=== PATIENT | female | born 1955 | race Caucasian/White ===

== ENCOUNTER 2016-11-11 06:54 | Day surgery (SDC) | payer OTHER ==
[2016-11-10 13:28] VITALS: BMI 28.7
--- OUTSIDE RECORDS SUMMARY | 2016-11-11 07:00 | XMS | Clinical Summary ---
:1955 Author Organization [facility] Address [address] [place] [address] Phone Care Team Providers Name Role Phone , Primary Care Provider Unavailable Allergies Not on File Current Medications Not on file Active Problems Not on file Social History Tobacco Use Types Packs/Day Years Used Date Never Assessed Sex Assigned at Date Recorded Not on file Last Filed Vital Signs Not on file Plan of Treatment Not on file Results Not on filefrom Last 3 Months
--- OUTSIDE RECORDS SUMMARY | 2016-11-11 07:00 | XMS | Clinical Summary ---
:1955 Author Organization [facility] Address [address] [place] [address] Phone Care Team Providers Name Role Phone [...]
[2016-11-11] MEDS ORDERED: Diprivan 20 ML ONE (08:00)
[2016-11-11 08:01] LABS: #Basophils 0.1 thou/uL (0.0-0.2); #Eosinphils 0.2 thou/uL (0.0-0.7); #Lymphocytes 2.9 thou/uL (1.20-3.40); #Monocytes 0.9 thou/uL (0.11-0.59); #Neutrophils 4.5 thou/uL (1.40-6.50); %Basophils 0.7 % (0.0-1.0); %Eosinophils 2.3 % (0.0-10.0); %Lymphocytes 33.8 % (21.0-51.0); %Monocytes 10.4 % (0.0-10.0); Hematocrit 42.5 % (36.0-47.0); Mean Platelet Volume 9.9 fL (7.4-10.4); Red Blood Cell (RBC) Count 4.59 mill/uL (4.20-5.40); White Blood Cell (WBC) Count 8.5 thou/uL (4.8-10.8)
[2016-11-11] MEDS ORDERED: Bupivacaine HCl 0.5%/Epinephrine 1:200,000/PF 30 ml Vial ONE (08:18)
[2016-11-11 08:20] LABS: Anion Gap 15 mmol/L (10-20); BUN (Urea Nitrogen) 19 mg/dL (9.8-20.1); Calc. Creatinine Clearance 108 mL/min (70-130); Calcium 9.3 mg/dL (7.8-10.44); Carbon Dioxide 25 mmol/L (23-31); Chloride 103 mmol/L (98-107); Estimated GFR-MDRD 87
[2016-11-11] MEDS ORDERED: Fentanyl 100 MCG/2 ML VIAL ONE ×2 (08:22→09:54)
--- NOTE | 2016-11-11 09:41 | OP ---
DATE OF PROCEDURE: 11/11/2016 PROCEDURES: Left knee arthroscopic partial medial meniscectomy and removal of large loose body. SURGEON: Zechariah Maldonado M.D. ANESTHESIA: General. BLOOD LOSS: Minimal. DRAINS: None. COMPLICATIONS: None. FINDINGS AT SURGERY: Grade 2-3 chondromalacia patellofemoral joint, intact lateral compartment, int act ACL, large loose body and medial meniscus tear with grade 3 chondromalacia medial femoral condyl e, placed the camera through the lateral portal and probe and shaver through the medial portal and d ebrided the medial meniscus to debride the articular cartilage flap tears of the medial femoral cond yle. The meniscus found to be stable. There was a large loose body which was under the medial meni scus. This was removed from the medial meniscus and extracted in 1 piece, shaved the bed of the loo se body and the femur where the damage had occurred from walking on this loose body. Knee was irrig ated and drained. Sterile dressings applied.
== END 2016-11-11 12:15 | disposition home or self-care (01) ==
LOC: SDC 06:54
PROVIDERS: ATTEND Orthopaedic Surgery
PROC: 0SBD4ZZ Excision of Left Knee Joint, Percutaneous Endoscopic Approach (ICD-10-PCS; principal; 2016-11-11)
DX: M22.42 Chondromalacia patellae, left knee (principal); I10 Essential (primary) hypertension; F32.9 Major depressive disorder, single episode, unspecified; F41.9 Anxiety disorder, unspecified; K21.9 Gastro-esophageal reflux disease without esophagitis; J45.909 Unspecified asthma, uncomplicated; E03.9 Hypothyroidism, unspecified; F17.210 Nicotine dependence, cigarettes, uncomplicated; Z88.5 Allergy status to narcotic agent; Z79.899 Other long term (current) drug therapy; M19.91 Primary osteoarthritis, unspecified site; Z90.710 Acquired absence of both cervix and uterus; Z98.890 Other specified postprocedural states
CPT/HCPCS: 36415; 80048; 85025; 93005; 93010; 96374; G8978-GP-CL; G8979-GP-CL; G8980-GP-CL; J0670; J2704; J3010

== ENCOUNTER 2017-01-12 17:07 | Outpatient (CLI) | payer OTHER | END 2017-01-12 17:08 | disposition home or self-care (01) | LOC: LABBT 17:07 | PROVIDERS: ATTEND Orthopaedic Surgery | DX: Z47.1 Aftercare following joint replacement surgery (principal); M75.101 Unspecified rotator cuff tear or rupture of right shoulder, not specified as traumatic ==

== ENCOUNTER 2017-01-19 06:13 | Day surgery (SDC) | payer OTHER ==
[2017-01-12 17:19] VITALS: BMI 28.2
[2017-01-19] MEDS ORDERED: Fentanyl 100 MCG/2 ML VIAL ONE (07:32)
[2017-01-19] MEDS ORDERED: Midazolam HCl 2 mg/2 ml Vial ONE (07:32)
[2017-01-19] MEDS ORDERED: Bupivacaine/Epinephrine 0.25% 30 ML VIAL ONE (08:21)
[2017-01-19] MEDS ORDERED: CEFAZOLIN/Water 2 GM/20 ML SYRINGE ONE (08:50)
--- NOTE | 2017-01-19 15:40 | OP ---
PREOPERATIVE DIAGNOSES: Impingement syndrome and frozen shoulder. POSTOPERATIVE DIAGNOSES: Impingement syndrome and frozen shoulder. PROCEDURES PERFORMED: Manipulation under anesthesia, arthroscopic major synovectomy, major debrideme nt, and acromioplasty with decompression. SURGEON: Zechariah Maldonado M.D. ANESTHESIA: General. BLOOD LOSS: Minimal. DRAINS: None. COMPLICATIONS: None. DESCRIPTION OF PROCEDURE: The patient was taken to the operating room where general anesthesia was i nduced. I manipulated her arm and I was able to obtain flexion of about 150, external rotation of 60 , internal rotation was not significantly improved, this is usually the case. Arm was placed in trac tion, and prepped and draped in the usual sterile fashion. Scope was placed in the glenohumeral join t, which was full of blood for manipulation. I debrided the synovium. I debrided the ligamentous ca psular structures circumferentially around the labrum to free up the glenohumeral joint. I was able to drive the scope through between the humeral head and the glenoid after this previously it was very tight. Synovectomy was performed, so the of joint was completely decompressed. Scope was liza nilda in subacromial bursa. I performed an anterior and inferior acromioplasty and complete bursectomy . The CA ligament was taken down. I probed the rotator cuff confirmed that it was not torn all the way through. There was probably some partial thickness tearing, but nothing that required surgical r epair. Shoulder was then drained. Portals closed with nylon suture. Sterile dressings applied. Th ere were no complications.
[2017-01-19] MEDS ORDERED: Bupivacaine HCl 0.5%/Epinephrine 1:200,000/PF 30 ml Vial ONE (16:20)
[2017-01-19] MEDS ORDERED: Glycopyrrolate 0.2 MG/ML 5 ML SYRINGE ONE (16:25)
[2017-01-19] MEDS ORDERED: Lidocaine 1% PF 5 ML VIAL ONE (16:25)
[2017-01-19] MEDS ORDERED: Ketorolac Tromethamine 30 MG/ML VIAL ONE (16:25)
[2017-01-19] MEDS ORDERED: Ondansetron HCl/PF 4 MG/2 ML Vial ONE (16:25)
[2017-01-19] MEDS ORDERED: Dexamethasone 20 MG/5 ML VIAL ONE (16:25)
[2017-01-19] MEDS ORDERED: Propofol 200 MG/20 ML VIAL ONE (16:25)
== END 2017-01-19 13:45 | disposition home or self-care (01) ==
LOC: SDC 06:13
PROVIDERS: ATTEND Orthopaedic Surgery
PROC: 0RBK4ZZ Excision of Left Shoulder Joint, Percutaneous Endoscopic Approach (ICD-10-PCS; principal; 2017-01-19)
DX: M75.42 Impingement syndrome of left shoulder (principal); M75.02 Adhesive capsulitis of left shoulder; M75.112 Incomplete rotator cuff tear or rupture of left shoulder, not specified as traumatic; I10 Essential (primary) hypertension; E89.0 Postprocedural hypothyroidism; K21.9 Gastro-esophageal reflux disease without esophagitis; M19.90 Unspecified osteoarthritis, unspecified site; Z90.710 Acquired absence of both cervix and uterus; Z90.49 Acquired absence of other specified parts of digestive tract; Z88.5 Allergy status to narcotic agent; Z98.890 Other specified postprocedural states; Z79.891 Long term (current) use of opiate analgesic; Z79.899 Other long term (current) drug therapy
CPT/HCPCS: G8984-GP-CK; G8985-GP-CK; G8986-GP-CK; J0670; J1100; J1885; J2001; J2250; J2405; J2704; J3010

== ENCOUNTER 2017-04-12 07:44 | Day surgery (SDC) | payer OTHER ==
[2017-04-11 15:34] VITALS: BMI 26.6
--- NOTE | 2017-04-12 06:12 | HP ---
HISTORY: Ms. Alvarado is a well-established patient of Dr. Mondragon. She returns today for evaluation o f 8-12 months of severe lower back pain and bilateral hip and buttock pain. She has an MRI on disk p rovided that reveals moderate lateral recess stenosis at L4-L5 which could potentially match her symp toms. She is adamant that she does not want to pursue any other conservative treatment at this time and hopes to find a surgical solution. PAST MEDICAL HISTORY: Significant for hypothyroidism, history of nerve damage in the left upper extr emity, gastroesophageal reflux disease, osteoarthritis. CURRENT MEDICATIONS: Aspirin, Dexilant, levothyroxine and Lyrica. ALLERGIES: MORPHINE and FENTANYL. PAST SURGICAL HISTORY: Left shoulder arthroplasty, left knee arthroscopy, dorsal column stimulator p lacement and removal, nerve decompression left, and lumbar decompression. PHYSICAL EXAMINATION: NEUROLOGIC: Alert and oriented x3. Gait is antalgic severely. Lower extremity motor exam is normal . ASSESSMENT: Lumbar radiculopathy. PLAN: Dr. Mondragon met with the patient, reviewed imaging and advocated for L4-L5 decompression. He ex plained to the patient the risks, benefits, alternatives of the procedure. The patient expressed und erstanding and would like to move surgery as discussed. I do believe the patient is mentally compete nt and capable of making medical decisions for herself, and we will proceed with surgery as planned.
[2017-04-12] MEDS ORDERED: CEFAZOLIN/Water 2 GM/20 ML SYRINGE ONE ×2 (07:59→13:41)
[2017-04-12] MEDS ORDERED: Thrombin 5000 UNITS/5 ML VIAL ONE (08:29)
[2017-04-12] MEDS ORDERED: Bupivacaine HCl 0.5%/Epinephrine 1:200,000/PF 30 ml Vial ONE (08:29)
[2017-04-12] MEDS ORDERED: Midazolam HCl 2 mg/2 ml Vial ONE (08:42)
[2017-04-12] MEDS ORDERED: Fentanyl 100 MCG/2 ML VIAL ONE (08:43)
[2017-04-12] MEDS ORDERED: HYDROmorphone 0.5 MG/0.5 ML SYRINGE ONE ×3 (08:54→12:10)
[2017-04-12] MEDS ORDERED: Ketamine 50 MG/ML VIAL ONE (09:05)
--- NOTE | 2017-04-12 11:29 | OP ---
DATE OF PROCEDURE: 04/12/2017 SURGEON: Gregg Mondragon M.D. ACQUISITION ADVISOR: Sal Horne PA-C INDICATION: Pain. DIAGNOSIS: Lumbar stenosis. PROCEDURE: L4-5 lumbar decompression. ANESTHESIA: General. TECHNIQUE: The patient was brought into the operating room and placed under general anesthesia. She was flipped from a supine or prone position on the operating room table. A linear incision was plan tash over the L4-L5 segment. After prepping and draping and after an appropriate operative pause, the incision was created. Soft tissues were swept away from midline. A self-retaining retractor was pl aced in the wound for optimal exposure. After confirming the appropriate levels of C-arm fluoroscopy , an Adson rongeur was used to remove the spinous process along the inferior aspect of L4 and the sup erior aspect of L5. High-speed cutting drill bit as well as 2, 3 and 4-mm Kerrisons were then used t o perform a laminectomy which extended to encompass the medial aspects of the facet joints at that [place]. The wound was irrigated. Hemostasis was maintained throughout. The wound was then closed in a natomic layers and a pressure dressing was applied. There were no known procedural complications.
[2017-04-12] MEDS ORDERED: Lidocaine 1% PF 5 ML VIAL ONE (16:12)
[2017-04-12] MEDS ORDERED: Atropine Sulfate 0.4 mg/1 ml Vial ONE (16:12)
[2017-04-12] MEDS ORDERED: Dexamethasone 20 MG/5 ML VIAL ONE (16:12)
[2017-04-12] MEDS ORDERED: Ondansetron HCl/PF 4 MG/2 ML Vial ONE (16:12)
[2017-04-12] MEDS ORDERED: Glycopyrrolate 0.2 MG/ML 5 ML SYRINGE ONE (16:12)
[2017-04-12] MEDS ORDERED: PHENYLEPHRINE-NS 100 MCG/ML 10 ML SYRINGE ONE (16:12)
[2017-04-12] MEDS ORDERED: PROPOFOL 200 MG/20 ML VIAL ONE (16:12)
== END 2017-04-12 14:40 | disposition home or self-care (01) ==
LOC: SDC 07:44
PROVIDERS: ATTEND Neurological Surgery
PROC: 01NB0ZZ Release Lumbar Nerve, Open Approach (ICD-10-PCS; principal; 2017-04-12)
DX: M48.061 Spinal stenosis, lumbar region without neurogenic claudication (principal); M54.16 Radiculopathy, lumbar region; E03.9 Hypothyroidism, unspecified; I10 Essential (primary) hypertension; K21.9 Gastro-esophageal reflux disease without esophagitis; F17.210 Nicotine dependence, cigarettes, uncomplicated; M19.90 Unspecified osteoarthritis, unspecified site; Z79.82 Long term (current) use of aspirin; Z79.891 Long term (current) use of opiate analgesic; Z79.899 Other long term (current) drug therapy; Z88.5 Allergy status to narcotic agent; Z98.890 Other specified postprocedural states
CPT/HCPCS: 76001; 96374; J0461; J0670; J1100; J1170; J2001; J2250; J2405; J2704; J3010

== ENCOUNTER 2017-06-19 16:07 | Emergency (ER) | payer OTHER ==
[2017-06-19] MEDS ORDERED: Ketorolac Tromethamine 60 MG/2 ML VIAL ONE (18:32)
[2017-06-19] MEDS ORDERED: Cyclobenzaprine 10 MG TAB ONE (18:32)
--- NOTE | 2017-06-19 19:09 | CT ---
CT LUMBAR SPINE PERFORMED WITHOUT CONTRAST ENHANCEMENT: HISTORY: Worsening low back pain since a fall four days ago. History of previous spinal surgery. FINDINGS: The vertebral bodies maintain normal height, and disk spaces are all fairly well preserved. There ar e degenerative facet changes present. There are no signs of any compression fracture. The visualize d portions of the kidneys appear unremarkable. No significant periaortic adenopathy. L1-L2: Unremarkable. L2-L3: Unremarkable. L3-L4: Disk bulge with facet changes cause some borderline canal narrowing. L4-L5: Postoperative changes are seen at this level with laminectomy change. Marked degenerative fa cet changes associated with a minimal spondylolisthesis of 2 to 3 mm. Increased density in the lyndsey en region could be related to scar. L5-S1: Disk bulge is seen. Severe facet hypertrophic changes are seen. No significant canal stenos is. IMPRESSION: 1. No acute findings. 2. Postoperative changes of the spine. POS: [facility]
--- NOTE | 2017-06-19 20:06 | CT ---
CT BRAIN PERFORMED WITHOUT CONTRAST ENHANCEMENT: HISTORY: The patient fell several days ago. Head injury. FINDINGS: There is some age appropriate ventricular and sulcal prominence. No signs of intracerebral hemorrhag e or extraaxial fluid collections. Tiny prominence along the dura, seen on axial image #22, more pos teriorly, could potentially represent a tiny meningioma. The mastoid air cells and visualized sinuse s show minimal mucosal change within the ethmoid air cells. IMPRESSION: No acute intracranial abnormalities. POS: [facility]
--- NOTE | 2017-06-19 20:08 | CT ---
CT CERVICAL SPINE PERFORMED WITHOUT CONTRAST ENHANCEMENT: HISTORY: Fall with neck pain. FINDINGS: The vertebral bodies are normal in height. There is an anterior cervical fusion at C5-C6. There are disk implants at the C6-C7 level. A dorsal column stimulator device is also present at this level. This degrades detail. There are degenerative facet changes present. At the C4-C5 level, there is b ilateral foraminal narrowing. There also appears to be some mild bilateral foraminal narrowing at C6 -C7. There is no CT evidence for fracture. IMPRESSION: Postoperative changes of the spine. No CT evidence for acute injury. POS: [facility]
== END 2017-06-19 22:06 | disposition home or self-care (01) ==
LOC: ERS 16:07
DX: S09.90XA Unspecified injury of head, initial encounter (principal); M54.5 Low back pain; F41.9 Anxiety disorder, unspecified; F32.9 Major depressive disorder, single episode, unspecified; F17.210 Nicotine dependence, cigarettes, uncomplicated; Z79.899 Other long term (current) drug therapy; W18.30XA Fall on same level, unspecified, initial encounter
CPT/HCPCS: 70450; 72125; 72131; 96372; J1885

== ENCOUNTER 2017-09-01 13:28 | Outpatient (CLI) | payer OTHER ==
--- NOTE | 2017-09-01 15:16 | MRI ---
MRI LEFT SHOULDER WITHOUT CONTRAST: HISTORY: M75.102, tear of left rotator cuff. COMPARISON: None. FINDINGS: This is exam is severely degraded due to motion artifact throughout all sequences. BICEPS TENDON: There is moderate extraarticular biceps tenosynovitis. There is a large spur of the lesser tuberosit y at the level of the intertrabecular groove causing some interstitial split tearing of the biceps te ndon. Moderate tendonosis of intraarticular biceps tendon. LABRUM: There is maceration of the entire circumferential labrum. ROTATOR CUFF: Evaluation of the rotator cuff is severely limited. There appears some high-grade undersurface parti al tearing of the entire supraspinatus tendon. No full-thickness perforation incidentally appreciate d. There is deep prior undersurface fraying of the subscapularis. BONES: There are large subchondral cysts of the glenoid with central articular surface complete cartilage lo ss. There is also large osteophyte formation of both the glenoid and the humeral head. SOFT TISSUES: Large subacromial subdeltoid bursa effusion. MUSCLES: There appears to be a normal muscle bulk. IMPRESSION: 1. Circumferential degenerative labral tearing with advanced osteoarthrosis. There is circumferenti al maceration of the labrum, large osteophyte formation, and extensive moderate size focal complete c artilage loss. 2. Large joint effusion with synovitis. 3. Large subacromial subdeltoid bursal effusion. 4. There appears to be some 50-60% undersurface partial tearing of nearly the entire supraspinatus t endon to the footplate with interstitial delamination. A full-thickness perforation is not appreciat ed, although severely limited due to the motion artifact. POS: [facility]
== END 2017-09-01 13:29 | disposition home or self-care (01) ==
LOC: TBSIIMAG 13:28
PROVIDERS: ATTEND Orthopaedic Surgery
DX: M75.102 Unspecified rotator cuff tear or rupture of left shoulder, not specified as traumatic (principal); M19.012 Primary osteoarthritis, left shoulder; M75.112 Incomplete rotator cuff tear or rupture of left shoulder, not specified as traumatic; M25.712 Osteophyte, left shoulder; M25.412 Effusion, left shoulder; M24.812 Other specific joint derangements of left shoulder, not elsewhere classified

== ENCOUNTER 2017-09-15 08:30 | Inpatient (IN) | payer OTHER ==
[2017-09-18 12:55] VITALS: BMI 26.6
[2017-09-21] MEDS ORDERED: CEFAZOLIN/Water 2 GM/20 ML SYRINGE ONE (06:35)
[2017-09-21] MEDS ORDERED: Sodium Chloride 0.9% 100 ML ONE (06:35)
[2017-09-21] MEDS ORDERED: HYDROcodone/Acetaminophen 10/325 mg Tablet PO PRN ×2 (06:45)
[2017-09-21] MEDS ORDERED: Bisacodyl 10 MG SUPP PR PRN (06:45)
[2017-09-21] MEDS ORDERED: diphenhydrAMINE 50 MG CAP PO PRN (06:45)
[2017-09-21] MEDS ORDERED: Ondansetron ODT 4 MG TAB PO PRN (06:45)
[2017-09-21] MEDS ORDERED: Zolpidem Tartrate 5 MG TAB PO PRN ×2 (06:45→07:34)
[2017-09-21] MEDS ORDERED: Methocarbamol 1 GM/10 ML VIAL SLOW IVP PRN (06:45)
[2017-09-21] MEDS ORDERED: Acetaminophen 325 MG TAB PO PRN (06:45)
[2017-09-21] MEDS ORDERED: Fentanyl 100 MCG/2 ML VIAL ONE (07:07)
[2017-09-21] MEDS ORDERED: Midazolam HCl 2 mg/2 ml Vial ONE (07:07)
[2017-09-21] MEDS ORDERED: Morphine 4 MG/ML VIAL ONE (07:10)
[2017-09-21] MEDS ORDERED: Ketorolac Tromethamine 30 MG/ML VIAL IVP PRN (07:34)
[2017-09-21] MEDS ORDERED: HYDROcodone/Acetaminophen 5/325 mg Tablet PO PRN (07:34)
[2017-09-21] MEDS ORDERED: traMADol HCl 50 MG TAB PO PRN ×2 (07:34)
[2017-09-21] MEDS ORDERED: Promethazine HCl 25 MG/ML VIAL IM PRN ×2 (07:34→09:51)
[2017-09-21] MEDS ORDERED: Ondansetron HCl/PF 4 MG/2 ML Vial IVP PRN ×2 (07:34→09:51)
[2017-09-21] MEDS ORDERED: Ropivacaine 0.2% 550 ML 550 ML NERVE BLCK SCH (07:34)
[2017-09-21] MEDS ORDERED: Promethazine HCl 25 MG/ML VIAL SLOW IVP PRN (09:51)
--- NOTE | 2017-09-21 10:38 | OP ---
DATE OF PROCEDURE: 09/21/2017 PREOPERATIVE DIAGNOSIS: Degenerative joint disease, left shoulder with biceps tendinitis. POSTOPERATIVE DIAGNOSIS: Degenerative joint disease, left shoulder with biceps tendinitis. PROCEDURE: Total shoulder arthroplasty with biceps tenotomy. SURGEON: Zechariah Maldonado M.D. SUPERVISOR HAND WORKERS: Mel Powell PA-C BLOOD LOSS: Minimal. SPECIMEN: None. DRAINS: None. COMPLICATIONS: None. DESCRIPTION OF PROCEDURE: The patient is taken to the operating room where general anesthesia was in duced. She was placed in a beach chair position, received vancomycin and Ancef preoperatively. Left arm was prepped from the neck to the fingertips. A standard deltopectoral approach was made. Subsc apularis was taken down with a dinesh of bone. I dislocated the shoulder and cut the humeral head. T he humerus was prepared for a stem size 4B x28 and head 46 x 17. After this, the humerus was prepare d. I exposed the glenoid circumferentially. I drilled a central hole and used a pegged small 35 gle noid. This was cemented into place. The biceps tendon was in poor condition, rather than tenodese i t. I decided to go ahead and do a tenotomy. It was not that mobile. The shoulder was reduced after trialing with good range of motion was obtained, good stability. Trials were removed. Permanent im plants were impacted into place with cemented glenoid and cemented humerus. Subscapularis was repair ed with a double row repair. Deltopectoral was closed with 0 Vicryl, subcu closed with 2-0 Vicryl, a nd the skin was closed with rafy.
[2017-09-21] MEDS: Sodium Chloride 0.9% 1,000 ML IV SCH ×2 (13:17→20:23)
[2017-09-21] MEDS: Pregabalin 50 MG CAP PO SCH ×3 (13:17→20:23)
[2017-09-21] MEDS: Mexiletine HCl 150 MG CAP PO SCH ×3 (13:17→20:23)
[2017-09-21] MEDS: Furosemide 20 MG TAB PO SCH (13:17)
[2017-09-21] MEDS: Famotidine 20 MG TAB PO SCH ×2 (13:17→20:23)
[2017-09-21] MEDS: Venlafaxine HCl XR 75 MG CAP PO SCH (13:17)
[2017-09-21] MEDS: Venlafaxine HCl XR 150 MG CAP PO SCH (13:17)
[2017-09-21] MEDS ORDERED: Ropivacaine 0.2% HCl/PF (40 MG/20 ML VIAL) ONE (13:58)
[2017-09-21] MEDS ORDERED: Ropivacaine 0.5% HCl/PF (150 MG/30 ML VIAL) ONE (13:58)
[2017-09-21] MEDS ORDERED: PHENYLEPHRINE-NS 100 MCG/ML 10 ML SYRINGE ONE (14:25)
[2017-09-21] MEDS ORDERED: Ondansetron HCl/PF 4 MG/2 ML Vial ONE (14:25)
[2017-09-21] MEDS ORDERED: PROPOFOL 200 MG/20 ML VIAL ONE (14:25)
[2017-09-21] MEDS ORDERED: Glycopyrrolate 0.2 MG/ML 5 ML SYRINGE ONE (14:25)
[2017-09-21] MEDS ORDERED: Dexamethasone 20 MG/5 ML VIAL ONE (14:25)
[2017-09-21] MEDS ORDERED: Ketorolac Tromethamine 30 MG/ML VIAL ONE (14:25)
[2017-09-21] MEDS ORDERED: ePHEDrine/0.9% NaCl/PF SYRINGE 50 mg/10 ml ONE (14:25)
[2017-09-21] MEDS: CEFAZOLIN/Water 2 GM/20 ML SYRINGE SLOW IVP SCH ×2 (16:18→20:24)
[2017-09-21] MEDS ORDERED: Vancomycin HCl 1.5 GM in Sodium Chloride 0.9% 250 ML 300 ML IVPB SCH (18:00)
[2017-09-21] MEDS: MORPHINE SULFATE 100 MG PO SCH ×2 (21:34→21:35)
[2017-09-21] MEDS: OLOPATADINE HCL EA EYE SCH (21:35)
[2017-09-22] MEDS: HYDROcodone/Acetaminophen 5/325 mg Tablet PO PRN ×2 (01:17→06:03)
[2017-09-22] MEDS ORDERED: Levothyroxine 175 MCG TAB PO SCH (06:00)
[2017-09-22] MEDS ORDERED: Ketotifen Fumarate 0.025% Ophth Soln 5 ml Bottle EA EYE SCH (09:00)
[2017-09-22] MEDS ORDERED: HYDROcodone/Acetaminophen 10/325 mg Tablet PO PRN ×2 (09:54)
[2017-09-22] MEDS: Mexiletine HCl 150 MG CAP PO SCH (10:12)
[2017-09-22] MEDS: Venlafaxine HCl XR 75 MG CAP PO SCH (10:12)
[2017-09-22] MEDS: Venlafaxine HCl XR 150 MG CAP PO SCH (10:12)
[2017-09-22] MEDS: Famotidine 20 MG TAB PO SCH (10:12)
[2017-09-22] MEDS: Pregabalin 50 MG CAP PO SCH (10:13)
[2017-09-22] MEDS: Furosemide 20 MG TAB PO SCH (10:13)
[2017-09-22 12:48] VITALS: BP 172/84; TEMP 97.5
== END 2017-09-22 14:19 | disposition home or self-care (01) | DRG 483 ==
LOC: SURG A 09-21 05:43 → SJJU 09-21 13:02
PROVIDERS: ADMIT Orthopaedic Surgery; ATTEND Orthopaedic Surgery
PROC: 0RRK0JZ Replacement of Left Shoulder Joint with Synthetic Substitute, Open Approach (ICD-10-PCS; principal; 2017-09-21)
PROC: 0LN20ZZ Release Left Shoulder Tendon, Open Approach (ICD-10-PCS; 2017-09-21)
DX: M19.012 Primary osteoarthritis, left shoulder (principal); M75.102 Unspecified rotator cuff tear or rupture of left shoulder, not specified as traumatic; M75.22 Bicipital tendinitis, left shoulder; I10 Essential (primary) hypertension
CPT/HCPCS: 36416; A4306; C1713; G8987-GO-CK; G8988-GO-CJ; J1100; J1885; J2250; J2270; J2405; J2704; J2795; J3010; J3370; J7050

== ENCOUNTER 2017-09-18 12:28 | Outpatient (CLI) | payer OTHER ==
[2017-09-18 13:28] LABS: #Basophils 0.1 thou/uL (0.0-0.2); #Eosinphils 0.2 thou/uL (0.0-0.7); #Lymphocytes 2.3 thou/uL (1.20-3.40); #Monocytes 0.7 thou/uL (0.11-0.59); #Neutrophils 3.2 thou/uL (1.40-6.50); %Eosinophils 2.5 % (0.0-10.0); %Lymphocytes 35.3 % (21.0-51.0); %Monocytes 11.2 % (0.0-10.0); Hemoglobin 13.9 g/dL (12.0-16.0); Mean Corpuscular HGB CONC 33.6 g/dL (32.0-36.0); Mean Corpuscular Hemoglobin 30.1 pg (27.0-31.0); Mean Corpuscular Volume 89.3 fL (78.0-98.0); Platelet Count 165 thou/uL (130-400); RBC Distribution Width 13.2 % (11.5-14.5); Red Blood Cell (RBC) Count 4.63 mill/uL (4.20-5.40); White Blood Cell (WBC) Count 6.4 thou/uL (4.8-10.8)
[2017-09-18 13:59] LABS: Anion Gap 14 mmol/L (10-20); BUN (Urea Nitrogen) 14 mg/dL (9.8-20.1); Calc. Creatinine Clearance 0 mL/min (70-130); Calcium 9.1 mg/dL (7.8-10.44); Carbon Dioxide 24 mmol/L (23-31); Chloride 104 mmol/L (98-107); Estimated GFR-MDRD 80; Glucose 142 mg/dL (80-115); Potassium 3.7 mmol/L (3.5-5.1); Sodium 138 mmol/L (136-145)
--- NOTE | 2017-09-18 15:18 | RAD ---
PA AND LATERAL VIEWS OF THE CHEST: History: Pre-operative evaluation. FINDINGS: The heart size is normal. The lungs are expanded without lobar consolidation, pneumothoraces, or pleu ral effusions. There are mild degenerative changes of the spine. There are post op changes in the low er cervical spine. IMPRESSION: No radiographic evidence of acute cardiopulmonary process. POS: [facility]
== END 2017-09-18 12:29 | disposition home or self-care (01) ==
LOC: LABBT 12:28
PROVIDERS: ATTEND Orthopaedic Surgery
DX: Z01.818 Encounter for other preprocedural examination (principal); M75.102 Unspecified rotator cuff tear or rupture of left shoulder, not specified as traumatic; M19.012 Primary osteoarthritis, left shoulder
CPT/HCPCS: 71046; 80048; 85025; 87081; 93005; 93010

== ENCOUNTER 2017-11-12 15:07 | Emergency (ER) | payer OTHER ==
[2017-11-12] MEDS ORDERED: Ketorolac Tromethamine 30 MG/ML VIAL ONE (15:57)
[2017-11-12] MEDS ORDERED: Diazepam 5 MG TAB ONE (15:58)
--- NOTE | 2017-11-12 16:54 | CT ---
CT CERVICAL SPINE NONCONTRAST: DATE: 11-12-17 HISTORY: [id number] with cervicalgia. FINDINGS: Vertebral body heights are maintained. Anterior metallic plate and screws at C5 and C6. Dorsal column spinal cord stimulator lead electrodes from C4-5 level to C7 level. There is ankylosis of the C5 and C6 vertebral bodies. There is non-ankylosis of C6 and C7, although there are interbody graft materia l that has settled into the endplates at C6-7. There is multilevel severe degenerative facet disease, especially in the upper levels, bilaterally. No severe bony central spinal canal stenosis at any lev el. Multiple levels of neuroforaminal stenosis. IMPRESSION: 1. Status post anterior cervical discectomy and fusion at mid and lower cervical spine. 2. Dorsal column spinal cord stimulator. 3. Multilevel bilateral severe facet osteoarthrosis. [place] POS: [facility]
== END 2017-11-12 18:15 | disposition home or self-care (01) ==
LOC: ERS 15:07
DX: S16.1XXA Strain of muscle, fascia and tendon at neck level, initial encounter (principal); Z71.6 Tobacco abuse counseling; F41.9 Anxiety disorder, unspecified; F32.9 Major depressive disorder, single episode, unspecified; F17.210 Nicotine dependence, cigarettes, uncomplicated; Z79.899 Other long term (current) drug therapy; X58.XXXA Exposure to other specified factors, initial encounter
CPT/HCPCS: 72125; 96372; 99406; J1885

== ENCOUNTER 2019-06-24 05:54 | Outpatient (CLI) | payer MEDICARE, OTHER ==
[2019-06-24 13:29] LABS: Anion Gap 15 mmol/L (10-20); BUN (Urea Nitrogen) 15 mg/dL (9.8-20.1); Calc. Creatinine Clearance 0 mL/min (70-130); Carbon Dioxide 24 mmol/L (23-31); Chloride 105 mmol/L (98-107); Estimated GFR-MDRD 79; Glucose 110 mg/dL (80-115); Potassium 3.7 mmol/L (3.5-5.1); Sodium 140 mmol/L (136-145)
[2019-06-24 18:14] LABS: SARS-CoV-2 MS2 Positive; SARS-CoV-2 N Gene Negative; SARS-CoV-2 S Gene Negative; SARS-CoV-2 orf1ab Negative
== END 2019-06-24 05:55 | disposition home or self-care (01) ==
LOC: LABBT 05:54
PROVIDERS: ATTEND Neurological Surgery
DX: Z01.812 Encounter for preprocedural laboratory examination (principal); Z11.59 Encounter for screening for other viral diseases; M43.16 Spondylolisthesis, lumbar region; M54.16 Radiculopathy, lumbar region
CPT/HCPCS: 80048; U0003; 87635

== ENCOUNTER 2019-06-26 07:24 | Day surgery (SDC) | payer MEDICARE, OTHER ==
[2019-06-24 10:55] VITALS: BMI 25.0
--- NOTE | 2019-06-25 12:44 | HP ---
HISTORY OF PRESENT ILLNESS: Ms. Alvraado is a 63-year-old woman known to us for prior evaluation and decompression at L4-5 for lumbar spinal stenosis some two years ago. She returns now with ever increasing lower back pain and components of L4 radiculopathies bilaterally with new MRI performed in [place] that reveals new anterolisthesis of L4 upon L5, which likely represents instability with foraminal stenosis. She hopes to move forward with treating this surgically as her pains are severe and she does not respond well with pain management procedures, although she has attempted them. PAST MEDICAL HISTORY: Significant for hypothyroidism, history of nerve damage to the left upper extremity, gastroesophageal reflux disease, and osteoarthritis. CURRENT MEDICATIONS: 1. Aspirin. 2. Dexilant. 3. Levothyroxine. 4. Lyrica. ALLERGIES: TO MORPHINE AND FENTANYL. PAST SURGICAL HISTORY: Left shoulder arthroplasty, left knee arthroscopy, DCS placement and removal, nerve decompression on the left, lumbar decompression x2. PHYSICAL EXAMINATION: On exam, she is alert and oriented x3. Gait is severely antalgic. Lower extremity motor exam is normal. ASSESSMENT: Lumbar radiculopathy and spondylolisthesis. PLAN: Dr. Mondragon met with the patient, reviewed imaging, advocated for reoperation at L4-5 with instrumentation and fusion. He explained to the patient the risks, benefits, and alternatives to the procedure. The patient expressed understanding and elected to move forward with surgery as discussed. I do believe the patient is mentally competent and capable of making medical decisions for herself. We will move forward with surgery as planned. Job ID: [id number]
[2019-06-26] MEDS ORDERED: Bupivacaine PF 0.5% 30 ML VIAL ONE (08:26)
[2019-06-26] MEDS ORDERED: EPINEPHrine 1 MG/ML AMP ONE (08:26)
[2019-06-26] MEDS ORDERED: Fentanyl 250 MCG/5 ML VIAL ONE (08:30)
[2019-06-26] MEDS ORDERED: Rocuronium Bromide 10 MG/ML (10ML VIAL) ONE (10:54)
[2019-06-26] MEDS ORDERED: EPHEDRINE 25 MG/5 ML SYRINGE ONE (10:54)
[2019-06-26] MEDS ORDERED: Lidocaine 1% PF 5 ML VIAL ONE (10:54)
[2019-06-26] MEDS ORDERED: Glycopyrrolate 0.2 MG/ML 5 ML SYRINGE ONE (10:54)
[2019-06-26] MEDS ORDERED: Dexamethasone 20 MG/5 ML VIAL ONE (10:54)
[2019-06-26] MEDS ORDERED: PHENYLEPHRINE-NS 100 MCG/ML 10 ML SYRINGE ONE (10:54)
[2019-06-26] MEDS ORDERED: Ondansetron PF 4 MG/2 ML Vial ONE (10:54)
[2019-06-26] MEDS ORDERED: PROPOFOL 200 MG/20 ML VIAL ONE (10:54)
--- NOTE | 2019-06-26 11:43 | OP ---
DATE OF PROCEDURE: 06/26/2019 BOX NAILER: Sal Horne PA-C. INDICATION: Pain. DIAGNOSIS: L4 upon L5 spondylolisthesis with associated back pain and lumbar radiculopathy. PROCEDURE PERFORMED: Reoperation of bilateral facetectomies at L4-L5, bilateral posterolateral instrumented fusion at L4-L5 with placement of allograft and placement of autograft. ANESTHESIA: General. DESCRIPTION OF PROCEDURE: The patient was brought into the operating room and placed under general anesthesia. She was flipped from the supine to prone position on the operating room table. A linear incision was planned over the L4-L5 segment. After prepping and draping and after an appropriate preoperative pause, the incision was created. The underlying soft tissues were swept away from midline and self-retaining retractors were placed. Procedural time was increased by at least 50% secondary to extensive scarring and loss of normal anatomy secondary to prior surgical procedures. That will be reflected in a surgical modifier-22. The prior decompression was extended to remove the most of the facet joints and all the lamina at L4 and L5. The pedicles at L4 and L5 were eventually palpated. With the aid of C-arm fluoroscopy, pedicle screws were placed at L4 and L5 bilaterally. An intraoperative 3D CT scan was performed, which revealed excellent placement of hardware. Rods were then placed across the screw heads and final tightened. Allograft and autograft material were then placed within the lateral confines of the instrumentation construct. The wound was irrigated. Hemostasis was maintained throughout. The wound was then closed in anatomic layers and a pressure dressing was applied. There were no known procedural complications. Job ID: [id number]
[2019-06-26] MEDS ORDERED: Fentanyl 100 MCG/2 ML VIAL ONE ×2 (12:06→12:29)
== END 2019-06-26 15:14 | disposition home or self-care (01) ==
LOC: SDC 07:24
PROVIDERS: ATTEND Neurological Surgery
PROC: 0ST20ZZ Resection of Lumbar Vertebral Disc, Open Approach (ICD-10-PCS; principal; 2019-06-26)
PROC: 0SG0071 Fusion of Lumbar Vertebral Joint with Autologous Tissue Substitute, Posterior Approach, Posterior Column, Open Approach (ICD-10-PCS; 2019-06-26)
DX: M43.16 Spondylolisthesis, lumbar region (principal); M54.16 Radiculopathy, lumbar region; I10 Essential (primary) hypertension; K21.9 Gastro-esophageal reflux disease without esophagitis; F17.210 Nicotine dependence, cigarettes, uncomplicated; Z79.82 Long term (current) use of aspirin; Z79.899 Other long term (current) drug therapy; Z88.5 Allergy status to narcotic agent; E03.9 Hypothyroidism, unspecified
CPT/HCPCS: 20930; 20936; 22612; 63012; 76000; C1713 ×4; C1768; J0171; J0690; J1100; J2001; J2405; J2704; J3010; S0020

== ENCOUNTER 2022-08-17 06:55 | Day surgery (SDC) | payer OTHER, MEDICAID ==
[2022-08-17] MEDS ORDERED: fentaNYL PF 100 MCG/2 ML SYRINGE ONE (08:36)
[2022-08-17] MEDS ORDERED: Magnesium 5 GM/10 ML VIAL ONE (08:36)
[2022-08-17] MEDS ORDERED: SUGAMMADEX SODIUM 200 MG/2 ML VIAL ONE (08:36)
[2022-08-17] MEDS ORDERED: Lidocaine 2% 6 ML (Jelly) SYR ONE (08:36)
[2022-08-17] MEDS ORDERED: Ketamine 50 MG/ML (10ML VIAL) ONE (08:36)
[2022-08-17] MEDS ORDERED: Dexmedetomidine 200 MCG/2 ML VIAL ONE (08:36)
[2022-08-17] MEDS ORDERED: CEFAZOLIN 2 GM VIAL ONE ×2 (08:41→14:05)
[2022-08-17] MEDS ORDERED: Sodium Chloride 0.9% 100 ML ONE ×2 (08:41→14:05)
[2022-08-17 08:50] LABS: Anion Gap 11 mmol/L (10-20); BUN (Urea Nitrogen) 21 mg/dL (9.8-20.1); Calc. Creatinine Clearance 66 mL/min (70-130); Calcium 9.3 mg/dL (7.8-10.44); Carbon Dioxide 27 mmol/L (23-31); Chloride 108 mmol/L (98-107); Estimated GFR 91; Glucose 99 mg/dL (80-115); Potassium 5.4 mmol/L (3.5-5.1); Sodium 141 mmol/L (136-145)
[2022-08-17] MEDS ORDERED: Ondansetron PF 4 MG/2 ML Vial ONE ×2 (09:01→09:53)
[2022-08-17] MEDS ORDERED: ePHEDrine Sulfate 50 MG/10 ML VIAL ONE (09:01)
[2022-08-17] MEDS ORDERED: Rocuronium Bromide 10 MG/ML (10ML VIAL) ONE (09:01)
[2022-08-17] MEDS ORDERED: Lidocaine 1% PF 5 ML VIAL ONE (09:01)
[2022-08-17] MEDS ORDERED: PROPOFOL 200 MG/20 ML VIAL ONE (09:01)
[2022-08-17] MEDS ORDERED: Dexamethasone 20 MG/5 ML VIAL ONE (09:01)
[2022-08-17] MEDS ORDERED: Fentanyl 250 MCG/5 ML VIAL ONE (10:24)
[2022-08-17] MEDS ORDERED: HYDROmorphone 0.5 MG/0.5 ML SYRINGE ONE ×3 (10:50→11:08)
== END 2022-08-17 14:45 | disposition home or self-care (01) ==
LOC: SDC 06:55
PROVIDERS: ATTEND Neurological Surgery
PROC: 0RG10A0 Fusion of Cervical Vertebral Joint with Interbody Fusion Device, Anterior Approach, Anterior Column, Open Approach (ICD-10-PCS; principal; 2022-08-17)
PROC: 0RT30ZZ Resection of Cervical Vertebral Disc, Open Approach (ICD-10-PCS; 2022-08-17)
DX: M48.02 Spinal stenosis, cervical region (principal); M47.12 Other spondylosis with myelopathy, cervical region; G89.29 Other chronic pain; E11.9 Type 2 diabetes mellitus without complications; F41.9 Anxiety disorder, unspecified; M19.90 Unspecified osteoarthritis, unspecified site; K21.9 Gastro-esophageal reflux disease without esophagitis; E03.9 Hypothyroidism, unspecified; Z86.73 Personal history of transient ischemic attack (TIA), and cerebral infarction without residual deficits; Z79.84 Long term (current) use of oral hypoglycemic drugs; Z79.899 Other long term (current) drug therapy
CPT/HCPCS: 20930; 20936; 22551; 22845; 22853; 80048; 93005; C1713; C1889; 93010; J1100; J1170; J2405; J2704; J3010; J3475; J3490

== ENCOUNTER 2022-09-13 14:40 | Emergency (ER) | payer OTHER | END 2022-09-13 18:08 | disposition home or self-care (01) | LOC: ERS 14:40 | DX: S39.012A Strain of muscle, fascia and tendon of lower back, initial encounter (principal); F17.210 Nicotine dependence, cigarettes, uncomplicated; V89.2XXA Person injured in unspecified motor-vehicle accident, traffic, initial encounter | CPT/HCPCS: 72128 ==

== ENCOUNTER 2022-11-29 11:20 | Emergency (ER) | payer OTHER, MEDICAID ==
[2022-11-29] MEDS ORDERED: HYDROmorphone 0.5 MG/0.5 ML SYRINGE ONE (11:48)
[2022-11-29 12:02] LABS: #Basophils 0.1 thou/uL (0.0-0.2); #Eosinphils 0.1 thou/uL (0.0-0.7); #Monocytes 0.8 thou/uL (0.11-0.59); %Basophils 0.6 % (0.0-1.0); %Eosinophils 0.8 % (0.0-10.0); %Lymphocytes 14.1 % (21.0-51.0); %Monocytes 6.7 % (0.0-10.0); %Neutrophils 77.1 % (42.0-75.0); Hematocrit 39.2 % (36.0-47.0); Hemoglobin 12.5 g/dL (12.0-16.0); Mean Corpuscular HGB CONC 31.9 g/dL (32.0-36.0); Mean Corpuscular Hemoglobin 27.4 pg (27.0-31.0); Mean Platelet Volume 12.3 fL (7.4-10.4); Platelet Count 247 10x3/uL (130-400); RBC Distribution Width 18.3 % (11.5-14.5); Red Blood Cell (RBC) Count 4.56 mill/uL (4.20-5.40); White Blood Cell (WBC) Count 11.7 10x3/uL (4.8-10.8)
[2022-11-29 12:20] LABS: ALT (SGPT) 13 U/L (8-55); AST (SGOT) 18 U/L (5-34); Albumin 4.3 g/dL (3.4-4.8); Alkaline Phosphatase 136 U/L (40-110); Anion Gap 12 mmol/L (10-20); BUN (Urea Nitrogen) 21 mg/dL (9.8-20.1); Bilirubin, Total 0.2 mg/dL (0.2-1.2); Calc. Creatinine Clearance 0 mL/min (70-130); Calcium 9.4 mg/dL (7.8-10.44); Carbon Dioxide 25 mmol/L (23-31); Chloride 103 mmol/L (98-107); Estimated GFR 95; Glucose 179 mg/dL (80-115); Potassium 4.2 mmol/L (3.5-5.1); Protein, Total 7.3 g/dL (5.8-8.1); Sodium 136 mmol/L (136-145)
[2022-11-29 12:23] LABS: Troponin I Less than 0.010 ng/mL (< 0.028)
== END 2022-11-29 13:41 | disposition home or self-care (01) ==
LOC: ERS 11:20
DX: S20.20XA Contusion of thorax, unspecified, initial encounter (principal); S61.511A Laceration without foreign body of right wrist, initial encounter; E11.9 Type 2 diabetes mellitus without complications; E03.9 Hypothyroidism, unspecified; F17.210 Nicotine dependence, cigarettes, uncomplicated; Z79.84 Long term (current) use of oral hypoglycemic drugs; V89.2XXA Person injured in unspecified motor-vehicle accident, traffic, initial encounter
CPT/HCPCS: 36415; 71046; 80053; 84484; 85025; 93005; 96374; J1170

== ENCOUNTER 2023-04-05 14:55 | Outpatient (CLI) | payer OTHER, MEDICAID | END 2023-04-05 14:56 | disposition home or self-care (01) | LOC: BICMRI 14:55 | PROVIDERS: ATTEND Orthopaedic Surgery | DX: S46.011D Strain of muscle(s) and tendon(s) of the rotator cuff of right shoulder, subsequent encounter (principal) | CPT/HCPCS: 72081 ==

== ENCOUNTER 2023-07-19 12:43 | Outpatient (CLI) | payer MEDICARE, MEDICAID ==
[2023-07-19 14:54] LABS: #Basophils 0.06 10x3/uL (0.0-0.2); #Eosinphils 0.08 10x3/uL (0.0-0.5); #Monocytes 0.33 10x3/uL (0.0-1.1); #Neutrophils 3.73 10x3/uL (1.5-8.4); %Basophils 1.1 % (0.0-2.0); %Eosinophils 1.4 % (0.0-6.0); %Lymphocytes 25.4 % (18.0-47.0); %Monocytes 5.9 % (0.0-10.0); Hematocrit 47.6 % (34.9-44.5); Mean Corpuscular HGB CONC 33.6 g/dL (32.0-36.0); Mean Corpuscular Hemoglobin 29.7 pg (27.0-33.0); Mean Corpuscular Volume 88.5 fL (81.6-98.3); Mean Platelet Volume 12.8 fL (7.4-10.4); Platelet Count 198 10x3/uL (150-450); RBC Distribution Width 13.3 % (11.5-14.5); Red Blood Cell (RBC) Count 5.38 10x6/uL (3.90-5.03); White Blood Cell (WBC) Count 5.6 10x3/uL (3.5-10.5)
[2023-07-19 15:21] LABS: Anion Gap 14 mmol/L (10-20); BUN (Urea Nitrogen) 12 mg/dL (9.8-20.1); Calc. Creatinine Clearance 0 mL/min (70-130); Calcium 9.6 mg/dL (7.8-10.44); Carbon Dioxide 25 mmol/L (23-31); Chloride 107 mmol/L (98-107); Estimated GFR 94; Glucose 115 mg/dL (80-115); Potassium 4.5 mmol/L (3.5-5.1); Sodium 141 mmol/L (136-145)
== END 2023-07-19 12:44 | disposition home or self-care (01) ==
LOC: LABBT 12:43
PROVIDERS: ATTEND Orthopaedic Surgery
DX: Z01.818 Encounter for other preprocedural examination (principal); S46.011A Strain of muscle(s) and tendon(s) of the rotator cuff of right shoulder, initial encounter
CPT/HCPCS: 71046; 80048; 85025; 93005; 93010

== ENCOUNTER 2023-07-27 06:37 | Day surgery (SDC) | payer MEDICARE, MEDICAID ==
[2023-07-19 13:08] VITALS: BMI 22.5
[2023-07-27] MEDS ORDERED: fentaNYL 50 mcg/mL 1 mL Vial ONE (07:25)
[2023-07-27] MEDS ORDERED: Ropivacaine 0.5% HCl/PF (150 MG/30 ML VIAL) ONE (07:26)
[2023-07-27] MEDS ORDERED: Ropivacaine 0.2% HCl/PF 0 ML ONE (07:26)
[2023-07-27] MEDS ORDERED: Midazolam HCl 2 mg/2 ml Vial ONE (07:26)
[2023-07-27] MEDS ORDERED: Bupivacaine PF 0.5% 30 ML VIAL ONE (07:37)
[2023-07-27] MEDS ORDERED: EPINEPHrine 1 MG/ML VIAL ONE ×2 (07:37→09:32)
[2023-07-27] MEDS ORDERED: Ondansetron PF 4 MG/2 ML Vial ONE (09:26)
[2023-07-27] MEDS ORDERED: Rocuronium Bromide 10 MG/ML (10ML VIAL) ONE (09:26)
[2023-07-27] MEDS ORDERED: Dexamethasone 4 mg/ml Vial ONE (09:26)
[2023-07-27] MEDS ORDERED: PROPOFOL 20 ML ONE (09:26)
[2023-07-27] MEDS ORDERED: Lidocaine 1% PF 5 ML VIAL ONE (09:26)
[2023-07-27] MEDS ORDERED: fentaNYL PF 100 MCG/2 ML SYRINGE ONE (09:26)
[2023-07-27] MEDS ORDERED: SUGAMMADEX SODIUM 200 MG/2 ML VIAL ONE (09:27)
[2023-07-27] MEDS ORDERED: Bupivacaine 0.25% HCL 30 ML VIAL ONE (09:32)
[2023-07-27] MEDS ORDERED: CEFAZOLIN 2 GM VIAL ONE (09:32)
[2023-07-27] MEDS ORDERED: Sodium Chloride 0.9% 100 ML ONE (09:33)
[2023-07-27] MEDS ORDERED: ePHEDrine Sulfate 50 MG/10 ML VIAL ONE (10:01)
[2023-07-27] MEDS ORDERED: PHENYLEPHRINE-NS 100 MCG/ML 10 ML SYRINGE ONE (10:05)
[2023-07-27] MEDS ORDERED: Ketorolac Tromethamine 30 MG (1 mL) VIAL ONE (11:35)
[2023-07-27] MEDS ORDERED: Ipratropium/Albuterol 3 ML NEB ONE (12:25)
== END 2023-07-27 14:10 | disposition home or self-care (01) ==
LOC: SDC 06:37
PROVIDERS: ATTEND Orthopaedic Surgery
PROC: 0LQ14ZZ Repair Right Shoulder Tendon, Percutaneous Endoscopic Approach (ICD-10-PCS; principal; 2023-07-27)
PROC: 3E0T3BZ Introduction of Anesthetic Agent into Peripheral Nerves and Plexi, Percutaneous Approach (ICD-10-PCS; 2023-07-27)
DX: S46.011A Strain of muscle(s) and tendon(s) of the rotator cuff of right shoulder, initial encounter (principal); S46.211A Strain of muscle, fascia and tendon of other parts of biceps, right arm, initial encounter; S43.431A Superior glenoid labrum lesion of right shoulder, initial encounter; M75.51 Bursitis of right shoulder; M75.21 Bicipital tendinitis, right shoulder; I10 Essential (primary) hypertension; E11.9 Type 2 diabetes mellitus without complications; F17.210 Nicotine dependence, cigarettes, uncomplicated; Z90.710 Acquired absence of both cervix and uterus; Z90.49 Acquired absence of other specified parts of digestive tract; Z90.89 Acquired absence of other organs; Z79.899 Other long term (current) drug therapy; Z88.5 Allergy status to narcotic agent; V89.2XXA Person injured in unspecified motor-vehicle accident, traffic, initial encounter
CPT/HCPCS: 29827; 64415; C1713 ×2; J0171; J0665 ×2; J1100; J1885; J2250; J2405; J2704; J3010; J3490; J2795; J7620